=== PATIENT | female | born 1970 | race Caucasian/White ===

== ENCOUNTER 2017-01-19 12:41 | Observation (INO) | payer OTHER ==
[2017-01-19] VITALS (11 sets, daily range): BP systolic 106–167; BP diastolic 65–96; PULSE 77–112; RESP 18–20; TEMP 98.4–98.8; O2SAT 95–100
[~2017-01-19] VITALS: Ht 175.3 cm; Wt 97.0 kg
[~2017-01-19 12:41] MED LIST: HYDR-3580; Z.0.NO CURRENT MEDS
--- NOTE | 2017-01-19 12:51 | PD ---
Physical Exam Time Seen by Provider: 12:46 Narrative 46yo F c/o L sided chest pain and SOB x3 days. CP worse with exertion. Report heart palpitation dn hx of tachycardia throughout life. Patient seen in triage. VS reviewed. Awaiting bed placement. Data Data Last Documented VS Vital Signs Date Time Temp Pulse Resp B/P Pulse Ox O2 Delivery O2 Flow Rate FiO2 01/19/17 12:43 98.6 112 20 167/96 100 Room Air MDM Supervised Visit with ZACHARY: Arleen Gerard January 19, 2017 12:51
--- NOTE | 2017-01-19 13:12 | PD ---
HPI Chief Complaint: Chest Pain Time Seen by Provider: 13:11 Travel History International Travel<30 days: No Contact w/Intl Traveler<30days: No Traveled to known affect area: No History of Present Illness HPI 46-year-old female presents to the emergency department for evaluation of midsternal chest pain that radiates up to her neck with exertion for the past 2 days. 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 She states that she has intermittent issues with tachycardia. Approximately 21 years ago, she was on atenolol for tachycardia, but has not been on it since. The patient states that she sees Dr. Parker, medical i d sales, intermittently. She states that she called him today and was aware that she was coming to the emergency department. The patient denies any headache. No hemoptysis. She states that when she has the chest pain with exertion, she will become short of breath. Patient denies any recent stress test or cardiac catheterization. She states she is not on any medications currently. She is allergic to aspirin. The patient denies any abdominal pain. No nausea, vomiting, diarrhea. Patient does report traveled to [place], [place] by car approximately one month ago. She denies any new leg edema. She denies any history of DVT/PE. Patient denies reporting history of hysterectomy. 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) Endocrine: No Gastrointestinal Disorders: Yes (RECENT MRA PELVIS/ABD AT [facility] THIS WK.) Genitourinary: No Immune Disorder: No Musculoskeletal: No Neurologic: No Psychiatric: No Reproductive: Yes Respiratory: No ?: Not : 2 Para: 2 Miscarriage: 0 : 0 Tubal Ligation: Yes Past Surgical History Appendectomy: Yes Hysterectomy: Yes Social History Alcohol Use: Yes (WINE/ OCCASIONAL LAST USED 2MONTHS) Tobacco Use: No Substance Use: No Allergies-Medications (Allergen,Severity, Reaction): Coded Allergies: Aspirin (Verified Allergy, Severe, hives, 01/19/17) Gentamicin (Verified Allergy, Severe, Hives, 01/19/17) Keflex (Verified Allergy, Severe, hives, 01/19/17) Latex (Verified Allergy, Severe, bronchospasm, 01/19/17) Penicillin (Verified Allergy, Severe, 01/19/17) Sulfa (Verified Allergy, Severe, hives, 01/19/17) Vancomycin (Verified Allergy, Severe, hives, 01/19/17) Reported Meds & Prescriptions Reported Meds & Active Scripts Active Lortab 7.5/325 Tab (Hydrocodone-Acetaminophen) 7.5 Mg/325 Mg Tab 1 Tab .XX Q6- 8HPRN 14 Days Reported No Current Meds (Miscellaneous Medication) Misc Review of Systems Except as stated in HPI: all other systems reviewed are Neg Physical Exam Narrative GENERAL: Well-nourished, well-developed female patient, afebrile. SKIN: Focused skin assessment warm/dry. HEAD: Normocephalic. Atraumatic. EYES: No scleral icterus. No injection or drainage. NECK: Supple, trachea midline. No JVD or lymphadenopathy. CARDIOVASCULAR: Regular rhythm without murmurs, gallops, or rubs. Bilateral radial and pedal pulses are 2+. Patient is slightly tachycardic with heart rate 107. RESPIRATORY: Breath sounds equal bilaterally. No accessory muscle use. Lungs sounds are clear to auscultation. GASTROINTESTINAL: Abdomen soft, non-tender, nondistended. MUSCULOSKELETAL: No cyanosis, or edema. Bilateral upper and lower extremity strength 5/5. All extremities are neurovascularly intact. BACK: Nontender without obvious deformity. No CVA tenderness. Data Data Last Documented VS Vital Signs Date Time Temp Pulse Resp B/P Pulse Ox O2 Delivery O2 Flow Rate FiO2 01/19/17 13:51 92 18 142/82 Room Air 01/19/17 13:15 98 01/19/17 12:43 98.6 Orders Electrocardiogram (01/19/17 12:49) Complete Blood Count With Diff (01/19/17 12:49) Basic Metabolic Panel (Bmp) (01/19/17 12:49) Ckmb (Isoenzyme) Profile (01/19/17 12:49) Troponin I (01/19/17 12:49) Chest, Single Ap (01/19/17 12:49) Iv Access Insert/Monitor (01/19/17 12:49) Ecg Monitoring (01/19/17 12:49) Oxygen Administration (01/19/17 12:49) Oximetry (01/19/17 12:49) Magnesium (Mg) (01/19/17 13:09) D-Dimer (01/19/17 13:09) Act Partial Throm Time (Ptt) (01/19/17 13:09) Prothrombin Time / Inr (Pt) (01/19/17 13:09) Echo 2d Comp With Doppler (01/19/17 ) Consult Cardiology (01/19/17 ) (Hub Use Only)Inp Phy Cons/Ref (01/19/17 ) Labs Laboratory Tests Test 01/19/17 13:25 White Blood Count 9.4 TH/MM3 Red Blood Count 4.92 MIL/MM3 Hemoglobin 14.1 GM/DL Hematocrit 42.0 % Mean Corpuscular Volume 85.4 FL Mean Corpuscular Hemoglobin 28.6 PG Mean Corpuscular Hemoglobin 33.5 % Concent Red Cell Distribution Width 12.8 % Platelet Count 380 TH/MM3 Mean Platelet Volume 8.9 FL Neutrophils (%) (Auto) 53.1 % Lymphocytes (%) (Auto) 36.8 % Monocytes (%) (Auto) 8.1 % Eosinophils (%) (Auto) 1.2 % Basophils (%) (Auto) 0.8 % Neutrophils # (Auto) 5.0 TH/MM3 Lymphocytes # (Auto) 3.5 TH/MM3 Monocytes # (Auto) 0.8 TH/MM3 Eosinophils # (Auto) 0.1 TH/MM3 Basophils # (Auto) 0.1 TH/MM3 CBC Comment DIFF FINAL Differential Comment Prothrombin Time 10.3 SEC Prothromb Time International 0.9 RATIO Ratio Activated Partial 28.4 SEC Thromboplast Time D-Dimer Quantitative (PE/DVT) 0.21 MG/L FEU Sodium Level 139 MEQ/L Potassium Level 3.6 MEQ/L Chloride Level 107 MEQ/L Carbon Dioxide Level 22.4 MEQ/L Anion Gap 10 MEQ/L Blood Urea Nitrogen 11 MG/DL Creatinine 0.78 MG/DL Estimat Glomerular Filtration 79 ML/MIN Rate Random Glucose 90 MG/DL Calcium Level 8.9 MG/DL Magnesium Level 2.3 MG/DL Total Creatine Kinase 48 U/L Troponin I LESS THAN 0.02 NG/ML MDM Medical Decision Making Medical Screen Exam Complete: Yes Emergency Medical Condition: Yes Medical Record Reviewed: Yes Interpretation(s) chest x-ray - CONCLUSION: No acute disease. Differential Diagnosis ACS versus chest wall pain versus PE versus anxiety versus unstable angina Narrative Course 46-year-old female presents to the emergency department for evaluation of midsternal chest pain that radiates to her neck that occurs with exertion for the past 2 days. Patient reports associated shortness of breath. EKG shows sinus tachycardia, heart rate 107 with left bundle branch block. CBC, BMP, CK, troponin, magnesium, PTT, PTT/INR, d-dimer, chest x-ray are ordered and pending. Patient is allergic to aspirin. CBC is unremarkable. BMP is unremarkable. CK is 48. Troponin is less than 0.02. Magnesium is 2.3. Coags are unremarkable. D-dimer is 0.21. Chest x- ray shows no acute disease. Dr. Parker, patient's medical i d sales, called and requested stat echo. This order is placed. He states he will see patient shortly. Dr. Salazar accepted admission. Diagnosis Primary Impression: Chest pain Qualified Code: R07.9 - Chest pain, unspecified type Additional Impression: Left bundle branch block Admitting Information Admitting Physician Requests: Ruth Olivo January 19, 2017 13:12
--- NOTE | 2017-01-19 13:33 | RADRPT ---
EXAM DATE/TIME: 01/19/2017 13:07 [facility] COMPARISON: No previous studies available for comparison. INDICATIONS : Chest pain. MEDICAL HISTORY : None. SURGICAL HISTORY : None. ENCOUNTER: Initial ACUITY: 3 days PAIN SCORE: 2/10 LOCATION: Bilateral chest FINDINGS: A single view of the chest demonstrates the lungs to be symmetrically aerated without evidence of mas s, infiltrate or effusion. The cardiomediastinal contours are unremarkable. Osseous structures are intact. CONCLUSION: No acute disease. Celio Cervantes MD FACR on January 19, 2017 at 13:30 Board Certified Radiologist. This report was verified electronically.
[2017-01-19 13:47] LABS: BASOPHIL # 0.1 TH/MM3 (0-0.2); BASOPHIL % 0.8 % (0.0-2.0); EOSINOPHIL # 0.1 TH/MM3 (0-0.4); EOSINOPHIL % 1.2 % (0.0-4.0); HEMO FLAGS DIFF FINAL; LYMPH % 36.8 % (9.0-44.0); LYMPHOCYTE # 3.5 TH/MM3 (1.0-4.8); MEAN CELL VOLUME 85.4 FL (80.0-100.0); MEAN CORPUSCULAR HEMOGLOBIN 28.6 PG (27.0-34.0); MEAN CORPUSCULAR HGB CONC 33.5 % (32.0-36.0); MONO % 8.1 % (0.0-8.0); NEUT % 53.1 % (16.0-70.0); PLATELET COUNT 380 TH/MM3 (150-450); RED BLOOD COUNT 4.92 MIL/MM3 (4.00-5.30); RED CELL DISTRIBUTION WIDTH 12.8 % (11.6-17.2); WHITE BLOOD COUNT 9.4 TH/MM3 (4.0-11.0)
[2017-01-19 14:04] LABS: APTT (PATIENT) 28.4 SEC (24.3-30.1); INTERNATIONAL NORMALIZED RATIO 0.9 RATIO; PROTHROMBIN TIME - PATIENT 10.3 SEC (9.8-11.6)
[2017-01-19 14:05] LABS: ANION GAP 10 MEQ/L (5-15); BICARBONATE 22.4 MEQ/L (21.0-32.0); BLOOD UREA NITROGEN 11 MG/DL (7-18); CHLORIDE 107 MEQ/L (98-107); GLOMERULAR FILTRATION RATE 79 ML/MIN (>89); POTASSIUM 3.6 MEQ/L (3.5-5.1); SODIUM (NA) 139 MEQ/L (136-145)
[2017-01-19 14:10] LABS: CREATINE KINASE 48 U/L (26-192)
--- NOTE | 2017-01-19 14:27 | PD ---
Data Data Last Documented VS Vital Signs Date Time Temp Pulse Resp B/P Pulse Ox O2 Delivery O2 Flow Rate FiO2 01/19/17 13:51 92 18 142/82 Room Air 01/19/17 13:15 98 01/19/17 12:43 98.6 Orders Electrocardiogram (01/19/17 12:49) Complete Blood Count With Diff (01/19/17 12:49) Basic Metabolic Panel (Bmp) (01/19/17 12:49) Ckmb (Isoenzyme) Profile (01/19/17 12:49) Troponin I (01/19/17 12:49) Chest, Single Ap (01/19/17 12:49) Iv Access Insert/Monitor (01/19/17 12:49) Ecg Monitoring (01/19/17 12:49) Oxygen Administration (01/19/17 12:49) Oximetry (01/19/17 12:49) Magnesium (Mg) (01/19/17 13:09) D-Dimer (01/19/17 13:09) Act Partial Throm Time (Ptt) (01/19/17 13:09) Prothrombin Time / Inr (Pt) (01/19/17 13:09) Echo 2d Comp With Doppler (01/19/17 ) Consult Cardiology (01/19/17 ) (Hub Use Only)Inp Phy Cons/Ref (01/19/17 ) Admit Order (Ed Use Only) (01/19/17 16:26) Labs Laboratory Tests Test 01/19/17 13:25 White Blood Count 9.4 TH/MM3 Red Blood Count 4.92 MIL/MM3 Hemoglobin 14.1 GM/DL Hematocrit 42.0 % Mean Corpuscular Volume 85.4 FL Mean Corpuscular Hemoglobin 28.6 PG Mean Corpuscular Hemoglobin 33.5 % Concent Red Cell Distribution Width 12.8 % Platelet Count 380 TH/MM3 Mean Platelet Volume 8.9 FL Neutrophils (%) (Auto) 53.1 % Lymphocytes (%) (Auto) 36.8 % Monocytes (%) (Auto) 8.1 % Eosinophils (%) (Auto) 1.2 % Basophils (%) (Auto) 0.8 % Neutrophils # (Auto) 5.0 TH/MM3 Lymphocytes # (Auto) 3.5 TH/MM3 Monocytes # (Auto) 0.8 TH/MM3 Eosinophils # (Auto) 0.1 TH/MM3 Basophils # (Auto) 0.1 TH/MM3 CBC Comment DIFF FINAL Differential Comment Prothrombin Time 10.3 SEC Prothromb Time International 0.9 RATIO Ratio Activated Partial 28.4 SEC Thromboplast Time D-Dimer Quantitative (PE/DVT) 0.21 MG/L FEU Sodium Level 139 MEQ/L Potassium Level 3.6 MEQ/L Chloride Level 107 MEQ/L Carbon Dioxide Level 22.4 MEQ/L Anion Gap 10 MEQ/L Blood Urea Nitrogen 11 MG/DL Creatinine 0.78 MG/DL Estimat Glomerular Filtration 79 ML/MIN Rate Random Glucose 90 MG/DL Calcium Level 8.9 MG/DL Magnesium Level 2.3 MG/DL Total Creatine Kinase 48 U/L Troponin I LESS THAN 0.02 NG/ML MDM Supervised Visit with ZACHARY: Yes Narrative Course I, Dr. Hernandez, have reviewed the advance practice practitioner's documentation and am in agreement, met with the patient face to face, made the diagnosis, and the medical decision making was done by me. *My assessment and Findings: Patient seen and examined by me in addition to Ruth Box. Patient has descriptions of fairly classic ACS symptoms but is currently asymptomatic. She does have a left bundle branch block and a previous EKG was from 2005 tracing is not available direct report from cardiology says was normal sinus rhythm. Presumably this could be a new bundle branch block but given that she is asymptomatic currently there is no indication to STEMI alert her. We'll monitor closely for symptoms. Have been discussing very closely with Dr. Parker who will be happy to consult and recommends admission to the hospital. After troponin returns negative Dr. Parker has arrived to examine the patient and plan is for cardiac catheterization in the morning. Patient remained asyptomatic on the emergency department. Diagnosis Primary Impression: Left bundle branch block Additional Impression: Chest pain Qualified Code: R07.9 - Chest pain, unspecified type Admitting Information Admitting Physician Requests: Admit Condition: Stable Rocky Hernandez MD January 19, 2017 14:27
--- NOTE | 2017-01-19 14:50 | EC ---
Study Study Date:01/19/2017 STUDY CONCLUSIONS SUMMARY - Left ventricle: The cavity size was normal. Wall thickness was normal. Systolic function was normal. The estimated ejection fraction was in the range of 55% to 60%. Wall motion was normal; there were no regional wall motion abnormalities. - Aortic valve: Valve area: 2.35cm^2 (Vmax). If LV function is below 40, please consider prescribing an ACEI or ARB or document rationale for non-use. PROCEDURE DATA STUDY STATUS: Elective. Procedure: Transthoracic echocardiography. Image quality was poor. Scanning was performed from the parasternal, apical, and subcostal acoustic windows. Study completion: The patient tolerated the procedure well. Transthoracic echocardiography. M-mode, complete 2D, complete spectral Doppler, and color Doppler. Height: Height: 69in. Weight: Weight: 215.6lb. Body mass index: BMI: 31.9kg/m^2. Body surface area: BSA: 2.13m^2. Patient status: Inpatient. CARDIAC ANATOMY LEFT VENTRICLE: The cavity size was normal. Wall thickness was normal. Systolic function was normal. The estimated ejection fraction was in the range of 55% to 60%. Wall motion was normal; there were no regional wall motion abnormalities. AORTIC VALVE: Trileaflet; normal thickness leaflets. Doppler: Transvalvular velocity was within the normal range. There was no stenosis. No regurgitation. Valve area: 2.35cm^2 (Vmax). Indexed valve area: 1.1cm^2/m^2 (Vmax). AORTA: Aortic root: The aortic root was normal in size. MITRAL VALVE: Structurally normal valve. Doppler: Transvalvular velocity was within the normal range. There was no evidence for stenosis. Trace to mild regurgitation. LEFT ATRIUM: The atrium was normal in size. RIGHT VENTRICLE: The cavity size was normal. Wall thickness was normal. PULMONIC VALVE: Doppler: Transvalvular velocity was within the normal range. There was no evidence for stenosis. No regurgitation. TRICUSPID VALVE: Structurally normal valve. Doppler: Transvalvular velocity was within the normal range. No regurgitation. PULMONARY ARTERY: The main pulmonary artery was normal-sized. Systolic pressure was within the normal range. RIGHT ATRIUM: The atrium was normal in size. PERICARDIUM: There was no pericardial effusion. SYSTEMIC VEINS: Inferior vena cava: The vessel was normal in size. Patient weight: 215.6lb _Ejection fraction:_ 65-75% _Fractional shortening:_ 32% up to 5Kg 5-11.5Kg 11.6-22.9Kg 23-45Kg 45-57Kg Aortic Root 7-13 <17 13-22 17-27 17-27 LA diam 6-13 <23 24-38 33-47 37-40 RVID 10-17 7-15 7-15 7-18 8-17 LVIDd 12-22 <32 24-38 33-47 37-40 LVPW 2-4 3-6 5-7 6-8 7-8 IVS 2-4 3-6 5-7 6-8 7-8 BASIC MEASUREMENTS ADULT NORMAL Left ventricle LV internal dimension, ED, chordal 46.6 mm 43-52 level, PLAX LV internal dimension, ES, chordal 34.7 mm 23-38 level, PLAX Fractional shortening, chordal level, *26 % >29 PLAX LV posterior wall thickness, ED 9.66 mm IVS/LVPW ratio, ED 1.07 <1.3 Ventricular septum Septal thickness, ED 10.3 mm Aortic valve Leaflet separation 19 mm 15-26 BASIC MEASUREMENTS ADULT NORMAL Aortic valve Leaflet separation 19 mm 15-26 Aorta Root diameter, ED 30 mm 20-37 Left atrium Anterior-posterior dimension, ES 25 mm 19-40 Anterior-posterior dimension index, ES 1.17 cm/m^2 <2.2 LA/aortic root ratio 0.83 DOPPLER MEASUREMENTS ADULT NORMAL Aortic valve Peak velocity, S 134 cm/s Valve area, Vmax 2.35 cm^2 Valve area index, Vmax 1.1 cm^2/m^2 Mitral valve Maximal regurgitant velocity 418 cm/s Pulmonic valve Peak velocity, S 113 cm/s LEGEND: Mean values are shown as u=mean value. Asterisk (*) boyer values outside specified normal range. Prepared and signed by Oscar Javier [id number]
[2017-01-19] MEDS ORDERED: SODIUM CHLORIDE 0.9% FLUSH 10 ML FLUSH IV FLUSH PRN (17:30)
[2017-01-19] MEDS ORDERED: ASPIRIN 81 MG CHEW TAB CHEW SCH (17:30)
[2017-01-19] MEDS ORDERED: ACETAMINOPHEN 325 MG TAB PO PRN (17:30)
[2017-01-19] MEDS ORDERED: NALOXONE HCL 0.4 MG/ML AMP IV PRN (17:30)
[2017-01-19] MEDS ORDERED: PANTOPRAZOLE SOD 40 MG DELAYED RELEASE TAB PO ONE (17:30)
[2017-01-19] MEDS ORDERED: HEPARIN SODIUM - SQ 10,000 UNITS/ML VIAL SQ SCH (17:30)
[2017-01-19] MEDS ORDERED: LACTULOSE SYRUP 20 GM/30 ML CUP PO PRN (17:30)
[2017-01-19] MEDS ORDERED: SENNOSIDES 8.6 MG TAB PO PRN (17:30)
[2017-01-19] MEDS ORDERED: ONDANSETRON HCL 4 MG/2 ML VIAL IVP PRN (17:30)
[2017-01-19] MEDS ORDERED: MAGNESIUM HYDROXIDE SUSP 30 ML CUP PO PRN (17:30)
[2017-01-19] MEDS ORDERED: TICAGRELOR 90 MG TAB PO ONE (18:00)
[2017-01-19] MEDS ORDERED: diphenhydrAMINE HCL 50 MG CAP PO ONE (18:00)
[2017-01-19] MEDS ORDERED: HEPARIN SODIUM - IV 10,000 UNITS/10 ML VIAL IV ONE (18:00)
[2017-01-19] MEDS ORDERED: HEPARIN-D5W INJ 250 ML IV SCH (18:00)
--- NOTE | 2017-01-19 18:18 | MH ---
cc: RICARDA AMARO MD DATE OF ADMISSION: 01/19/2017 DATE OF : 1970 CHIEF COMPLAINT Chest pain. HISTORY OF PRESENT ILLNESS This is a pleasant 46-year-old white female who has been in her usual state of health up until the past few weeks. She does note a tired sensation which seems to be worsening with activity. 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 The patient states that for the past couple of days that she has had a pressure sensation in her midsternal chest. She states that it has a full sensation and seems to radiate now up into the neck and the left shoulder. She does have some shortness of breath associated with the pain and states that it waxes and wanes depending on activity. The patient states that she is now over the past 48 hours walking short distances and becomes short of breath and lightheaded to the point that she feels like she needs to lay down. After resting, the patient states that the pain will be easy but the symptoms return with any type of exertion. The patient noted that she has had WPW or some type of tachycardia as a young child [id number] years old. She also experienced tachycardia and problems with her pregnancies. The patient denies any headaches, no current shortness of breath at rest. She denies any extremity edema, no cough, no recent fever, no recent sickness or antibiotics. PAST MEDICAL HISTORY 1. Tachycardia or WPW when she was a younger. 2. Hyperlipidemia. 3. Mild anxiety. 4. Mild obesity. 5. Occasional increased stressors. PAST SURGICAL HISTORY 1. Appendectomy. 2. Hysterectomy. 3. Recent MRA of the pelvis and abdomen. ALLERGIES ASPIRIN, GENTAMICIN, KEFLEX, LATEX, PENICILLIN, SULFA, AND VANCOMYCIN. REPORTED MEDICATIONS No routine usual medications. SOCIAL HISTORY The patient is , currently lives with her . 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 Denies any alcohol or illicit drug use. A very rare social drink of wine on special occasions. FAMILY HISTORY Positive for atrial fibrillation, cardiovascular disease and leukemia. REVIEW OF SYSTEMS A 12-point review was done and positives noted in the HPI include her chest pain, pressure sensation in the chest with fullness associated with shortness of breath, radiating into the left shoulder and left neck. Lightheadedness with palpitations with some mild palpitations but not a consistent symptom. Increased stressors. Other systems negative or unremarkable. PHYSICAL EXAMINATION VITAL SIGNS: Temperature is 98.6, pulse labile between 92-112, respiratory rate 18, blood pressure 142/82, initially was 167/96 on admission, O2 saturation 98 on room air. GENERAL: Mildly obese white female, looks to be her stated age, well-nourished, well-developed. She is alert, oriented, cooperative and a good historian. HEAD, EYES, EARS, NOSE AND THROAT/NECK: Atraumatic, normocephalic. PERRLA at 2. Mucous membranes are pink and moist. Neck is supple. She has no scleral icterus. SKIN: Her skin is pink, warm and dry. CARDIOVASCULAR: S1, S2. Regular, rate and rhythm. Heart sounds are distant but no murmurs, rubs or gallops audible. She has no lower extremity edema and her pulses are 2+/4+ and intact. PULMONARY: Essentially clear anteriorly and posteriorly with no wheezes, rales or rhonchi. ABDOMEN: Abdomen is round, soft, nontender, nondistended. Active bowel sounds in all quadrants. MUSCULOSKELETAL: She moves all extremities with purpose. She has equal hand computerized table cutter. NEUROLOGIC: Her tongue is midline. Her speech is clear. PSYCHOLOGICAL: Appropriate mood and affect. Insight and judgment is normal. DIAGNOSTIC DATA Sodium 139, potassium 3.6, chloride 107, carbon dioxide 22.4, anion gap 10, BUN 11, creatinine 0.78, GFR 79, random glucose 90, calcium 8.9, magnesium 2.3, creatine kinase 48, troponin less than 0.02. PT/INR is 0.9. D-dimer is 0.21. WBC count 9.4, RBC 4.92, hemoglobin 14.1, hematocrit 42, platelet count 380. The only abnormal in her disks is her monocyte percentage which is 8.1. Imaging studies show her chest x-ray to be a normal exam, no acute disease. ASSESSMENT AND PLAN 1. Chest pain. Rule out ME. Rule out cardiovascular disease. 2. Tachycardia with EKG showing left bundle branch block. 3. Exertional dyspnea related to #1. 4. History of tachycardia as a child. 5. Hyperlipidemia. PLAN 1. Admit for observation. 2. We will monitor her vital signs as well as her labs, ECG monitoring and IV access. 3. O2 administration. The patient has been instructed to wear oxygen if her pain continues. 4. We will consult Cardiology for their expert opinion. 5. DVT prophylaxis with heparin subcu. 6. PUD prophylaxis with Protonix. 7. The patient has no TSH on her labs. We will monitor a TSH level for a baseline and rule out any type of thyroid disease. The patient is FULL CODE/FULL AGGRESSIVE CARE and we will follow. Dictated by: Ele Miranda NP MD RAFAEL Monsalve/FRANCISCO /5:12 PM /5:39 PM
[2017-01-19] MEDS ORDERED: ALPRAZolam 0.25 MG TAB PO PRN (20:00)
[2017-01-19] MEDS: NITROGLYCERIN 2% OINT 1 GM PACKET TOPICAL SCH (20:43)
[2017-01-19] MEDS: TICAGRELOR 90 MG TAB PO SCH ×2 (21:00→21:10)
[2017-01-19] MEDS: SODIUM CHLORIDE 0.9% FLUSH 10 ML FLUSH IV FLUSH SCH (21:11)
[2017-01-19] MEDS: METOPROLOL TARTRATE 25 MG TAB PO SCH (21:11)
[2017-01-19] MEDS: SODIUM CHLOR 0.9% 1000 ML INJ 1,000 ML IV SCH (21:12)
[2017-01-19 22:03] LABS: ALT (GPT) 21 U/L (10-53); ANION GAP 8 MEQ/L (5-15); AST (GOT) 14 U/L (15-37); BICARBONATE 24.4 MEQ/L (21.0-32.0); BLOOD UREA NITROGEN 9 MG/DL (7-18); CHLORIDE 108 MEQ/L (98-107); GLOMERULAR FILTRATION RATE 79 ML/MIN (>89); POTASSIUM 3.7 MEQ/L (3.5-5.1); SODIUM (NA) 140 MEQ/L (136-145)
--- NOTE | 2017-01-19 22:29 | MB ---
cc: ANTHONY LANDON M.D. DATE OF CONSULTATION 01/19/2017 REASON FOR CONSULTATION Evaluation of chest pain. 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 She has no prior cardiac history. She does have a significant family history insofar as her father had a heart attack at age 80. She had a grandfather who of [place]. She has other relatives that have atrial fibrillation. At one time she was told she had an extremely high cholesterol but this was while she was on hormone replacement therapy. Her numbers improved after she went off hormone replacement so she has never been treated with a statin before. Last year she was diagnosed with an acute cytomegalic virus infection. She started feeling different about two weeks ago. 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 She has been unusually exhausted, having a little more palpitations than normal, but then started getting chest pain. The first episode of chest pain was Tuesday night when [place] the [place]. It was pain in the middle of her chest like a crushing, tightness, fullness with radiation into the throat with shortness of breath. It was relieved by resting and now if she does any activity, just minimal activity such as walking a very short distance she will get a crushing substernal chest pain with fullness in her throat, some dizziness and shortness of breath. Just getting dressed this morning brought on these type of symptoms. She was at work and had symptoms like this and requested an EKG. Subsequently was taken to the ER and is now being admitted. She has not had any prolonged discomfort, all of her discomfort has resolved. She does not have orthopnea, PND or edema. She is unable to take aspirin because aspirin gives her hives and bronchospasms so she is not on any antiplatelet therapy. She has had no recent lipid values. I did speak with her primary care physician Dr. Borja and in her electronic medical record he could not find lipid values that had been done. She has a left bundle-branch block on her EKG. She has not been known to previously have this. As a child she was thought to have potentially WPW but that was never confirmed. She used to have rapid palpitations and tachycardia but this was more than 20 years ago. MEDICATIONS She has no current medications. ALLERGIES HER ALLERGIES INCLUDE ASPIRIN, GENTAMICIN, KEFLEX, LATEX, PENICILLIN, SULFA, VANCOMYCIN. PAST MEDICAL HISTORY 1. Cytomegalovirus. 2. Previous left knee arthroscopy for torn meniscus. 3. Ruptured appendix at age 25, that was when she was tried on all of the above antibiotics and had reactions to them. PAST SURGICAL HISTORY Includes a complete hysterectomy. SOCIAL HISTORY She is . She has two children and one stepchild. She works at [employer]. PHYSICAL EXAMINATION GENERAL: Physical exam shows a mildly anxious, well-developed, well-nourished, white female in no acute distress. VITAL SIGNS: Her vital signs are charted. HEENT: Exam is unremarkable. NECK: Notable for the absence of JVD or bruits. CHEST: Her chest is clear to auscultation. CARDIOVASCULAR: Exam shows a normal first and second heart sound, regular rate and rhythm. There are no murmurs or gallops. ABDOMEN: Soft, nontender. No masses, organomegaly. EXTREMITIES: Show no clubbing, cyanosis or edema. Pulses are intact. EKG shows sinus rhythm with a left bundle-branch block and no acute changes on top of the left bundle to suggest ischemia. Initial troponin is normal. Creatinine is 0.78. Hematocrit is 42.0. PT/PTT are normal. Lipid values been ordered and are pending. TSH level was ordered and pending. IMPRESSION This is a 46-year-old female with a family history of coronary artery disease and history of hyperlipidemia who has not been feeling well for the past two weeks and for the last several days was having symptoms that are fairly classic for unstable angina. Other than unstable angina I cannot think of any other diagnosis that would adequately explain her current symptomatology. She has a left bundle-branch block on her EKG which is of unknown duration. PLAN Lipid values are being measured. Her thyroid being checked. I think this is true unstable angina. Therefore I think we should proceed directly to cardiac catheterization. I am going to initiate heparin and Brilinta this evening. We will go ahead and initiate antianginal therapy with beta amanda and nitroglycerin. She cannot be treated with aspirin due to an aspirin allergy. PLAN Is to perform a diagnostic cardiac catheterization first thing tomorrow morning. We will then determine what type of revascularization she might need. She understands there is a significant chance she may end up needing a stent tomorrow. Informed consent has been obtained. I have spoken with her . Further therapy be determined. MD LORA Yoder/SCOTT /6:10 PM /10:00 PM
[2017-01-19 22:38] LABS: ALKALINE PHOSPHATASE 64 U/L (45-117); HDL CHOLESTEROL 48.7 MG/DL (40.0-60.0); LDL CHOLESTEROL 133 MG/DL (0-99); TOTAL BILIRUBIN ADULT 0.5 MG/DL (0.2-1.0)
[2017-01-20] VITALS (14 sets, daily range): BP systolic 113–137; BP diastolic 66–83; PULSE 70–132; RESP 16–18; TEMP 98.8–98.9; O2SAT 95–99
[2017-01-20] MEDS ORDERED: HEPARIN SODIUM - IV 10,000 UNITS/10 ML VIAL IV PRN ×2
[2017-01-20] MEDS: NITROGLYCERIN 2% OINT 1 GM PACKET TOPICAL SCH ×2 (00:39→06:04)
[2017-01-20] MEDS: SODIUM CHLOR 0.9% 1000 ML INJ 1,000 ML IV SCH (04:00)
[2017-01-20 04:03] LABS: APTT (PATIENT) 41.4 SEC (24.3-30.1)
[2017-01-20] MEDS: METOPROLOL TARTRATE 25 MG TAB PO SCH (06:04)
[2017-01-20] MEDS ORDERED: DIAZEPAM 5 MG TAB PO ONE (06:30)
[2017-01-20] MEDS ORDERED: HEPARIN-NS/PF INJ 500 ML ONE (07:27)
[2017-01-20] MEDS ORDERED: VERAPAMIL HCL 5 MG/2 ML VIAL ONE ×2 (07:28→08:17)
[2017-01-20] MEDS ORDERED: MIDAZOLAM HCL 2 MG/2 ML VIAL ONE ×2 (07:28→07:53)
[2017-01-20] MEDS ORDERED: HEPARIN SODIUM - IV 10,000 UNITS/10 ML VIAL ONE (07:28)
[2017-01-20] MEDS ORDERED: NITROGLYCERIN INJ 5 ML ONE (07:30)
[2017-01-20] MEDS ORDERED: SODIUM CHLOR 0.9% 1000 ML INJ 1,000 ML IV SCH (08:51)
[2017-01-20] MEDS: SODIUM CHLORIDE 0.9% FLUSH 10 ML FLUSH IV FLUSH SCH (09:00)
[2017-01-20] MEDS ORDERED: ONDANSETRON HCL 4 MG/2 ML VIAL IVP PRN (09:00)
[2017-01-20] MEDS ORDERED: oxyCODONE/ACETAMINOPHEN 5 MG/325 MG TAB PO PRN (09:00)
[2017-01-20] MEDS ORDERED: BACITRACIN OINT 0.9 GM PKT TOP ONE (09:00)
[2017-01-20] MEDS ORDERED: MISC INFORMATION XX ONE (09:00)
--- NOTE | 2017-01-20 09:04 | CATHPROC ---
[employer] HIS Report Study Information Study Number Scheduled Start Study Start [id number] 01/20/2017 Jan 20 2017 7:14AM Referring Institution Admit Source Facility Department 1 Emergency department [facility] - Handbag Operator Physician and Clinical Staff Initial Jeffrey Rios Accreditation Manager Kavya Fuentes,RN Recorder Tripp Bellamy,MIGUELITO(BS) Recorder Aleena Martinez,WELDING PRODUCTION SUPERVISOR TECH2 Scrub Lian Garcia,RT(R) Procedures Performed Procedure Location (Site) Vessel Name Angiogram LV LV Ventricle Coronary Angiograms LCA Left Coronary Coronary Angiograms RCA Right Coronary L Heart Cath Equipment Time Pigment Pusher Description Size Mfg Part Number Used/Scraped TRANSDUCER, TRUWAVE [id number] 07:20 GARCIA FUENTES * Used W/STOCKCOCK *[id number] 534-576T *[id number] 534-545T *[id number] 534-548T *[id number] 534-518T *[id number] 534-521T *[id number] 534-523T *[id number] 538-453S *[id number] 07:20 MALLINCKRODT SYRINGE, ANGIOMAT 150ML 150ML *[id number] Used 2SUB [id number] 07:20 Converged Access PACK, CCL CUSTOM * Used *[id number] 07:20 Converged Access SUPPORT, ARTERIAL ADULT 35069 Used [id number] 07:20 TherapeuticsMD PACER PEN, SKIN DUAL W/ RULER * Used *[id number] BAND, RADIAL COMPRESSION TR [id number] 08:47 Bottle MEDICAL 24CM Used SHORT 24 *[id number] 07:20 [employer] WIRE, EXCHANGE 260CM 3MMJ 260CM Used *[id number] 07:20 NAMIC MANIFOLD, 4 PORT * Used *[id number] 07:20 NYCOMED OMNIPAQUE, 350 MG, 100ML 100ML [id number] Used 08:08 NYCOMED OMNIPAQUE, 350 MG, 150ML 150ML [id number] Used [id number] 07:20 marinanow BLANKET,WARM AIR CCL * Used *[id number] 07:20 marinanow JELCO NEEDLE 4056 Used SHEATH, FR6 TRANSRADIAL 07:20 [employer] FR 6 [id number] Used SLENDER 10CM History: Current Medications Medication Dosage/Unit Route Frequency Last Date/Time Taken Beta Fernando History: Allergies Allergy Reaction Aspirin hives Gentamicin Hives Keflex hives Latex bronchospasm Penicillin Sulfa hives Vancomycin hives History: Risk Factors Family History of Hypertension Dyslipidemia Previous HI Previous Heart Failure Premature CAD No Yes Yes No No Prior Valve Prior PCI Prior CABG Surgery No No No Cerebrovascular Peripheral Artery Chronic Lung On Dialysis Diabetes Disease Disease Disease No No No No No History: Symptoms/Diagnosis Selection Items Angina-unstable History: Stress Tests Stress or Imaging Studies Performed No History: Other Current Smoker No Labs Hgb (g/dl) Hct (%) WBC (l/cumm) Platelets (thousands) 12.00-18.00 37.00-55.00 4.80-10.80 140.00-450.00 14.1 42 9.4 380 Glucose (mg/dl) BUN (mg/dl) Creatinine (mg/dl) BUN:Creatinine (1:x) 60.00-110.00 8.00-20.00 0.10-9.00 10.00-20.00 88 9 0.7 12.9 Na (meq/l) K (meq/l) 138.00-146.00 3.80-5.10 140 3.7 INR (PTT:PT) 0.50-2.00 0.9 Troponin I (ng/ml) CPK-MB (ng/ML) 0.40-2.30 0.00-7.00 0.02 Not Drawn Medication Medication Total Dose (Bolus/Oral) Medication Total Dosage/Unit 1% XYLOCAINE 10 mL RADIAL COCKTAIL 10 mL (Bolus) VERSED 4 mg Medications (Bolus/Oral) Medication Time Given Dosage/Unit Administered By Reason VERSED 01/20/2017 7:37:12 AM 1 mg Alfredo, Kavya 1 mg VERSED given in lab by Kavya Fuentes RN in Left Forearm via Peripheral IV. Ordered by Jeffrey Daley. VERSED 01/20/2017 7:48:28 AM 1 mg Alfredo, Kavya 1 mg VERSED given in lab by Kavya Fuentes RN in Left Forearm via Peripheral IV. Ordered by Jeffrey Daley. VERSED 01/20/2017 7:54:34 AM 1 mg Alfredo, Kavya 1 mg VERSED given in lab by Kavya Fuentes RN in Left Forearm via Peripheral IV. Ordered by Jeffrey Daley. 1% XYLOCAINE 01/20/2017 7:57:19 AM 10 mL Jeffrey Parker 10 mL 1% XYLOCAINE given in lab by Jeffrey Parker in Right Radial via Subcutaneous. Ordered by Jeffrey Parker. Ntg 200mcg Verapamil 2.5mg Heparin RADIAL COCKTAIL 01/20/2017 8:06:59 AM 5 mL (Bolus) Jeffrey Parker 2500U 5 mL (Bolus) RADIAL COCKTAIL given in lab by Jeffrey Parker in Right Radial via Radial. Using [Solutio n Name]. Ordered by Jeffrey Parker. Reason: Ntg 200mcg Verapamil 2.5mg. Ntg 200mcg Verapamil 2.5mg Heparin RADIAL COCKTAIL 01/20/2017 8:22:29 AM 5 mL (Bolus) Jeffrey Parker 2500U 5 mL (Bolus) RADIAL COCKTAIL given in lab by Jeffrey Parker in Right Radial via Radial. Using [Solutio n Name]. Ordered by Jeffrey Parker. Reason: Ntg 200mcg Verapamil 2.5mg. VERSED 01/20/2017 8:30:11 AM 1 mg Kavya Fuentes 1 mg VERSED given in lab by Kavya Fuentes, RN in Left Forearm via Peripheral IV. Ordered by Jeffrey Daley. Medication (Drip) Medication Time Given Dosage/Unit Concentration/Unit Diluent (ml) Solution IV Solutions 01/20/2017 7:17:31 AM 0 mL (IV) 500 NaCl .9 Patient arrived on IV Solutions in Left Forearm via Peripheral IV. Pump/Drip Flow = 20 ml/hr using Na Cl .9. Ordered by Jeffrey Parker. Initial Case Assessment Cardiovascular HR Rhythm NIBP Chest Pain 79 SR 131/82 2 Edema Present Skin color Skin None Normal Warm Dry Circulatory - Right Pulses Dorsalis Pedis Femoral Radial 3 2 2 Scale (0,1,2,3,4,d) Circulatory - Left Pulses Dorsalis Pedis Femoral Radial 3 2 Scale (0,1,2,3,4,d) Circulatory - Lower Extremities Color Lower Right Color Lower Left Normal Normal Neurological State Oriented to time-place- Alert Moves all extremities person Respiration - General Respiration Rate SpO2 (%) (B/min) 10 97 Final Case Assessment Cardiovascular HR Rhythm NIBP Chest Pain 79 SR 131/82 2 Edema Present Skin color Skin None Normal Warm Dry Circulatory - Right Pulses Dorsalis Pedis Femoral Radial 3 2 2 Scale (0,1,2,3,4,d) Circulatory - Left Pulses Dorsalis Pedis Femoral Radial 3 2 Scale (0,1,2,3,4,d) Circulatory - Lower Extremities Color Lower Right Color Lower Left Normal Normal Neurological State Oriented to time-place- Alert Moves all extremities person Respiration - General Respiration Rate SpO2 (%) (B/min) 10 97 Chronological Log Time Study Chronological Log 7:14:39 Patient arrived via Bed. 7:14:40 Patient Name, D.O.B, / Armband Verified By R.N. 7:14:41 Consent signed by the physician and the patient and verified by the Handbag Operator staff. 7:14:42 Pre-op and post- op instructions given; patient acknowledges understanding of instructions. 7:17:15 Allens test performed on the right radial and ulnar artery. 7:17:17 Patient has been NPO for Less than 6Hrs. 7:17:18 Skin Breakdown- 7:17:19 Patient Warmer Placed on the Table. 7:17:29 A # 22 IV was noted in the Forearm (left). Grade = 0 Patient arrived on IV Solutions in Left Forearm via Peripheral IV. Pump/Drip Flow = 20 ml/hr us ing NaCl .9. Ordered by 7:17:31 Jeffrey Parker. 7:17:32 History and physical on the chart or being dictated. Assessment: Initial Case, HR=79 BPM, Rhythm=SR, UKDR=246/82 mmhg, Chest Pain=2, Edema=None, Keasbey r=Normal, Skin = Warm, Dry Right Pulses: Michael Ped=3, Femoral=2, Radial=2 Left Pulses: Michael Ped=3, Femoral=2 7:17:33 Lower Right Extremities: Color=Normal Lower Left Extremities: Color=Normal Neurological: State=Alert, Ox3, VICK Respiration: Resp=10 B/min, SpO2=97 % Vitals capture started with the following parameters, Patient=Adult, Interval=15 min, Initial Pr wnhoag=075 mmHg, 7:26:29 Deflation Rate=5 mmHg 7:27:02 HR=83 bpm, CVIG=730/82 mmhg, Resp=10 B/min, Pain=0, Rashaun=10, Ashby=2 7:32:01 HR=83 bpm, JKFV=618/88 mmhg, SpO2=97.0 %, Resp=11 B/min, Pain=0, Rashaun=10, Ashby=2 7:32:24 MD arrived. 7:33:24 Reference ECG taken 7:37:00 HR=79 bpm, OKCM=134/80 mmhg, SpO2=96.0 %, Resp=13 B/min, Pain=0, Rashaun=10, Ashby=2 7:37:12 1 mg VERSED given in lab by Kavya Fuentes, RN in Left Forearm via Peripheral IV. Ordered by Jeffrey Parker. 7:42:04 HR=98 bpm, PDJA=049/84 mmhg, SpO2=97.0 %, Resp=21 B/min, Pain=0, Rashaun=10, Ashby=2 7:45:25 12 LEAD EKG REQUESTED 7:47:05 HR=86 bpm, FTAU=959/80 mmhg, SpO2=97.0 %, Resp=14 B/min, Pain=0, Rashaun=10, Ashby=2 7:48:28 1 mg VERSED given in lab by Kavya Fuentes, JORDAN in Left Forearm via Peripheral IV. Ordered by Jeffrey Parker. 7:52:02 HR=97 bpm, EYTH=360/85 mmhg, SpO2=98.0 %, Resp=10 B/min, Pain=0, Rashaun=10, Ashby=2 Time Out. Correct patient, correct procedure,correct physician, ,power injector loaded with cont rast with surgical team 7:54:12 present. Time Out Concurred by , individual staff in procedure 7:54:17 Case Start 7:54:34 1 mg VERSED given in lab by Kavya Fuentes, JORDAN in Left Forearm via Peripheral IV. Ordered by Jeffrey Parker. 7:55:24 Pressure channel 1 zeroed. 7:57:03 HR=85 bpm, SSKY=627/80 mmhg, SpO2=96.0 %, Resp=16 B/min, Pain=0, Rashaun=10, Ashby=2 7:57:19 10 mL 1% XYLOCAINE given in lab by Jeffrey Parker in Right Radial via Subcutaneous. Ordered b Jeffrey Bailey. 8:02:02 HR=83 bpm, IEBD=906/81 mmhg, Resp=16 B/min, Pain=0, Rashaun=10, Ashby=2 8:05:35 Access site was Radial Artery. A SHEATH, FR6 TRANSRADIAL SLENDER 10CM FR 6 was advanced into the Radial (right) using the Skylar chua ::59 technique. 5 mL (Bolus) RADIAL COCKTAIL given in lab by Jeffrey Parker in Right Radial via Radial. Using [So lution Name]. 8::59 Ordered by Jeffrey Parker. Reason: Ntg 200mcg Verapamil 2.5mg. 8:07:07 HR=94 bpm, TBHJ=842/70 mmhg, SpO2=97.0 %, Resp=15 B/min, Pain=0, Rashaun=10, Ashby=2 A JL 3.5 INFINITI CATHETER FR 5 was advanced over a wire. OMNIPAQUE, 350 MG, 150ML 150ML was use d for 8:07:16 injections. Recorded Pressure: Ao, HR=86, Condition=Condition 1 8:07:27 (Aorta) Ao 106/73/87 8:08:13 The LCA was injected and visualized at various angles. OMNIPAQUE, 350 MG, 150ML 150ML used. After removing the current catheter a JR 5.0 INFINITI CATHETER FR 5 was advanced over a WIRE, EX CHANGE 260CM 8:10:19 3MMJ 260CM. 8:12:04 HR=88 bpm, FYVK=895/76 mmhg, SpO2=96.0 %, Resp=8 B/min, Pain=0, Rashaun=10, Ashby=2 After removing the current catheter a AR MOD INFINITI CATHETER FR 5 was advanced over a WIRE, EX CHANGE 260CM 8:16:13 3MMJ 260CM. 8:17:05 HR=85 bpm, MWDJ=887/78 mmhg, SpO2=96.0 %, Resp=10 B/min, Pain=0, Rashaun=10, Ashby=2 After removing the current catheter a 3DRC INFINITI CATHETER FR 5 was advanced over a WIRE, EXCH ABNER 260CM 8:21:13 3MMJ 260CM. 8:22:06 HR=80 bpm, DVAO=118/76 mmhg, SpO2=96.0 %, Resp=13 B/min, Pain=0, Rashaun=10, Ashby=2 5 mL (Bolus) RADIAL COCKTAIL given in lab by Jeffrey Parker in Right Radial via Radial. Using [S olution Name]. 8:22:29 Ordered by Jeffrey Parker. Reason: Ntg 200mcg Verapamil 2.5mg. After removing the current catheter a AL 1 INFINITI CATHETER FR 5 was advanced over a WIRE, EXC HANGE 260CM 8:25:56 3MMJ 260CM. 8:27:11 HR=83 bpm, CFAD=830/72 mmhg, SpO2=97.0 %, Resp=11 B/min, Pain=0, Rashaun=10, Ashby=2 After removing the current catheter a JR 4.0 INFINITI CATHETER FR 5 was advanced over a WIRE, E XCHANGE 260CM 8:29:03 3MMJ 260CM. 8:30:11 1 mg VERSED given in lab by Kavya Fuentes, RN in Left Forearm via Peripheral IV. Ordere d by Jeffrey Parker. Recorded Pressure: LV, HR=80, Condition=Condition 1 8:30:30 (Left Ventricle) LV 119/5/11 Recorded Pressure: LV, Ao, HR=80, Condition=Condition 1 8:30:36 (Left Ventricle) LV 117/5/10, (Aorta) Ao 122/76/97 8:31:42 The RCA was injected and visualized at various angles. OMNIPAQUE, 350 MG, 150ML 150ML used . 8:32:04 HR=89 bpm, SUFK=767/79 mmhg, SpO2=96.0 %, Resp=13 B/min, Pain=0, Rashaun=10, Ashby=2 After removing the current catheter a PIGTAIL ANG. INFINITI CATHETER FR 4 was advanced over a W FOREIGN, EXCHANGE 8:33:08 260CM 3MMJ 260CM. 8:33:50 The LV was injected at 10 cc/sec for a total of 40. OMNIPAQUE, 350 MG, 150ML 150ML used. 8:37:07 HR=90 bpm, WMBJ=178/78 mmhg, SpO2=98.0 %, Resp=8 B/min, Pain=0, Rashaun=10, Ashby=2 8:37:07 Catheter was removed 8:40:00 Case End 8:42:06 HR=83 bpm, CRUT=568/87 mmhg, Resp=7 B/min, Pain=0, Rashaun=10, Ashby=2 Assessment: Final Case, HR=79 BPM, Rhythm=SR, WJEE=294/82 mmhg, Chest Pain=2, Edema=None, Color =Normal, Skin = Warm, Dry Right Pulses: Michael Ped=3, Femoral=2, Radial=2 Left Pulses: Michael Ped=3, Femoral=2 8:43:03 Lower Right Extremities: Color=Normal Lower Left Extremities: Color=Normal Neurological: State=Alert, Ox3, VICK Respiration: Resp=10 B/min, SpO2=97 % 8:43:14 Sterile dressing applied to site 8:43:15 No case complications noted. 8:43:18 Cine recording checked. 8:43:29 Bedside Report will be given. 8:43:43 Contrast Scanned 8:43:50 A Left Heart Cath was performed. Radial Compression Device Used. 15 mLs of air placed in BAND, RADIAL COMPRESSION TR SHORT 24 24 CM. Affected 8:43:52 hand 98 % O2 saturation. 8:43:52 Patient moved to stretcher End Study - Contrast Media Used In Study Contrast Total Opened (mL) Total Used (mL) Total Wasted (mL) Omnipaque 150 150 0 End Study - Maximum Contrast Load Max Contrast Load (mL) 692.9 End Study - Radiation Exposure Fluoro Time (minutes) 15.1 End Study - Patient Disposition Complications Transferred To Telemetry Bed
--- NOTE | 2017-01-20 09:46 | EKG ---
Date Performed: 01/20/2017 Time Performed: 07:43:02 PTAGE: 46 years EKG: Sinus rhythm . Anteroseptal T wave changes may be due to myocardial ischemia Abnormal ECG PREVIOUS TRACING : 01/19/2017 12.55 Compared to the previous tracing, no longer a LBBB, but T w ave inversions are new anteriorly DOCTOR: Vin Castro Interpretating Date/Time 01/20/2017 09:44:12
--- NOTE | 2017-01-20 10:09 | MA ---
cc: ANTHONY LANDON DATE 01/20/2017 PROCEDURE PERFORMED Left heart catheterization, left ventriculography, coronary angiography, right radial artery approach. 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 She had a background history of hyperlipidemia, although this improved with diet and stopping hormone therapy. LDL cholesterol here was 133. She had a left bundle-branch block on presentation during her stay. It was noted the left bundle-branch block is intermittent and actually an EKG was obtained while she was in sinus rhythm showing some T-wave changes inferiorly and in the anteroseptal leads. Because of strong clinical suspicion with the clinical story of unstable angina, a cardiac catheterization was advised. Troponins have been negative. DESCRIPTION OF PROCEDURE The patient was brought to the cardiac lab aid in a fasting state. She received additional IV Versed for sedation using 1% lidocaine for local anesthesia. A treadmill slender sheath was inserted in the right radial artery without difficulty using ultrasound guidance. Coronary angiography was then completed using a left 3.5 Miguel for the left coronary artery. The right coronary artery was difficult to engage selectively, but was successfully accomplished with the right Miguel. A pigtail catheter was used to measure left ventricular pressure followed by a pullback. The sheath was removed from the right wrist with a Terumo band placed. Through were no complications. FINDINGS 1. Hemodynamics. Left ventricular pressure was 117/5 with an end-diastolic pressure of 10, aortic pressure is 122/76 with a mean of 97. There is no gradient during pullback from left ventricle to the aorta. 2. Left ventriculography. Left ventriculography shows normal left ventricular function. Estimated ejection fraction of 60%. There is no mitral regurgitation. There are no coronary calcifications. 3. Coronary angiography. Coronary circulation is right-dominant. The left main coronary artery is large and normal-appearing. 4. The left anterior descending artery has one significant diagonal branch and reaches the LV apex and appears normal. 5. The circumflex artery gives off a large obtuse marginal branch and a large posterolateral branch and appears normal. 6. The right coronary artery is a large vessel. Posterolateral branch given off is extremely small. The right coronary artery appears normal. CONCLUSION 1. Normal hemodynamics. 2. Normal left ventricular function. 3. Normal coronary arteries. RECOMMENDATIONS It is difficult to explain the patient's exertional chest discomfort, cannot exclude the possibility of coronary spasm. I am going to start her on diltiazem 180 mg once a day and nitroglycerin sublingual p.r.n. I am going to hold off putting her on Brilinta in view of the coronaries being normal. She will be discharged home later today. MD LORA Yoder/DENISHA /8:51 AM /9:56 AM
[2017-01-20] MEDS ORDERED: NITR1SUB3 SL (10:49)
[2017-01-20] MEDS ORDERED: DILT-60 PO (10:49)
[2017-01-20 11:37] LABS: APTT (PATIENT) 28.6 SEC (24.3-30.1)
--- NOTE | 2017-01-20 11:53 | EKG ---
Date Performed: 01/19/2017 Time Performed: 12:55:02 PTAGE: 46 years EKG: SINUS TACHYCARDIA MARKED LEFT AXIS DEVIATION LEFT BUNDLE BRANCH BLOCK ABNORMAL ECG PREVIOUS TRACING : 04/05/2006 20.39 Compared to the previous tracing, left bundle branch block is new DOCTOR: Vin Castro Interpretating Date/Time 01/20/2017 11:52:17
--- NOTE | 2017-01-20 12:22 | HHI.PR ---
Objective Objective Results - Vital Signs Date Time Temp Pulse Resp B/P Pulse Ox O2 Delivery O2 Flow Rate FiO2 01/20/17 11:45 98.9 85 16 127/83 97 01/20/17 11:45 70 01/20/17 10:00 86 01/20/17 09:30 98 01/20/17 09:28 70 01/20/17 09:28 98.9 79 16 137/82 99 01/20/17 07:00 89 01/20/17 06:13 82 01/20/17 06:08 132 01/20/17 06:00 82 01/20/17 05:00 82 01/20/17 04:00 78 01/20/17 03:00 85 01/20/17 03:00 98.8 86 18 113/66 95 01/20/17 02:00 80 01/20/17 01:00 82 01/20/17 00:00 83 01/19/17 23:27 95 21 01/19/17 23:00 77 01/19/17 23:00 98.4 78 18 106/65 96 01/19/17 22:00 85 01/19/17 21:00 82 01/19/17 20:10 98.8 88 18 140/86 95 01/19/17 20:00 94 01/19/17 19:00 100 01/19/17 17:38 98 21 01/19/17 13:51 92 18 142/82 Room Air 01/19/17 13:15 106 18 98 Room Air 01/19/17 13:13 106 18 01/19/17 13:13 98 Room Air 01/19/17 12:43 98.6 112 20 167/96 100 Room Air I/O 01/19/17 01/19/17 01/19/17 01/20/17 01/20/17 01/20/17 07:00 15:00 23:00 07:00 15:00 23:00 Intake Total 480 ml Output Total 375 ml Balance 105 ml Intake Oral 480 ml Output Urine Total 375 ml # Voids 2 Result Diagram: 01/19/17 1325 01/19/172058 Other Results Laboratory Tests Test 01/19/17 01/19/17 01/20/17 01/20/17 13:25 20:59 03:20 11:11 White Blood Count 9.4 Red Blood Count 4.92 Hemoglobin 14.1 Hematocrit 42.0 Mean Corpuscular Volume 85.4 Mean Corpuscular Hemoglobin 28.6 Mean Corpuscular Hemoglobin 33.5 Concent Red Cell Distribution Width 12.8 Platelet Count 380 Mean Platelet Volume 8.9 Neutrophils (%) (Auto) 53.1 Lymphocytes (%) (Auto) 36.8 Monocytes (%) (Auto) 8.1 Eosinophils (%) (Auto) 1.2 Basophils (%) (Auto) 0.8 Neutrophils # (Auto) 5.0 Lymphocytes # (Auto) 3.5 Monocytes # (Auto) 0.8 Eosinophils # (Auto) 0.1 Basophils # (Auto) 0.1 CBC Comment DIFF FINAL Differential Comment Prothrombin Time 10.3 Prothromb Time International 0.9 Ratio Activated Partial 28.4 41.4 28.6 Thromboplast Time D-Dimer Quantitative (PE/DVT) 0.21 Sodium Level 139 140 Potassium Level 3.6 3.7 Chloride Level 107 108 Carbon Dioxide Level 22.4 24.4 Anion Gap 10 8 Blood Urea Nitrogen 11 9 Creatinine 0.78 0.78 Estimat Glomerular Filtration 79 79 Rate Random Glucose 90 88 Calcium Level 8.9 8.9 Magnesium Level 2.3 Total Creatine Kinase 48 Troponin I LESS THAN 0.02 LESS THAN 0.02 Total Bilirubin 0.5 Aspartate Amino Transf 14 (AST/SGOT) Alanine Aminotransferase 21 (ALT/SGPT) Alkaline Phosphatase 64 Total Protein 6.9 Albumin 3.5 Triglycerides Level 83 Cholesterol Level 198 LDL Cholesterol 133 HDL Cholesterol 48.7 Cholesterol/HDL Ratio 4.06 Thyroid Stimulating Hormone 0.638 3rd Gen Physical Exam Physical Exam PHYSICAL EXAMINATION GENERAL: This is a well-developed, well-nourished female who appears to be in no acute distress. She is alert and awake, []. HEAD: Normocephalic without any lesion or mass noted. Facial features appear symmetric. EYES: Perrla, Normal eye movement, [] Icterus. [] Conj congestion. OROPHARYNGEAL: Oropharynx without erythema or edema. MOUTH/THROAT: Tongue midline []. Buccal mucosa is moist []. NECK: Supple. No nuchal rigidity or lymphadenopathy. Trachea midline without deviation. Thyroid not palpable, no bruits appreciated. CARDIAC: Regular rhythm, regular rate, S1 and S2 are heard. Murmur []; no gallops or rubs. LUNGS: Clear to auscultation bilaterally. [] wheeze, [] rhonchi or [] rale. No use of accessory muscles on inspiration or expiration. ABDOMEN: Soft, nontender, no organomegaly or masses. Bowel sounds are heard in all four quadrants. No rebound. No guarding. EXTREMITIES: [] edema. Pulses equal bilateral. [] cyanosis. NEUROLOGICAL: Patient mood and affect appropriate. Cranial nerves II through XII grossly intact. Muscle strength 5/5 in the upper and lower extremities bilaterally. Deep tendon reflexes are 2+ in the upper and lower extremities bilaterally. SKIN:Warm and moist PSYCH: Mood and affect appropriate A/P Assessment and Plan PHYSICAL EXAMINATION GENERAL: Mildly obese white female, looks to be her stated age, well-nourished, well-developed. She is alert, oriented, cooperative and a good historian. HEAD, EYES, EARS, NOSE AND THROAT/NECK: Atraumatic, normocephalic. PERRLA at 2. Mucous membranes are pink and moist. Neck is supple. She has no scleral icterus. SKIN: Her skin is pink, warm and dry. CARDIOVASCULAR: S1, S2. Regular, rate and rhythm. Heart sounds are distant but no murmurs, rubs or gallops audible. She has no lower extremity edema and her pulses are 2+/4+ and intact. PULMONARY: Essentially clear anteriorly and posteriorly with no wheezes, rales or rhonchi. ABDOMEN: Abdomen is round, soft, nontender, nondistended. Active bowel sounds in all quadrants. MUSCULOSKELETAL: She moves all extremities with purpose. She has equal hand enrolled nurse. NEUROLOGIC: Her tongue is midline. Her speech is clear. PSYCHOLOGICAL: Appropriate mood and affect. Insight and judgment is normal. ASSESSMENT AND PLAN 1. Chest pain. Rule out OK. Rule out cardiovascular disease. 2. Tachycardia with EKG showing left bundle branch block. 3. Exertional dyspnea related to #1. 4. History of tachycardia as a child. 5. Hyperlipidemia. PLAN observation. Appreciate CaRDIOLOGY INPUT s/p Cardiac cath with normal coronories symptoms likely sec to spasms, Diltiazem and SL Nitro prescribed NO ASA sec to Allergy ok to d/c home per Cardiology Lipid profile noted with LDL 131, patient want to diet and exercise first ok to d/c home plan of care discussed with patient, family at bed side, nursing staff and Apurva Kim MD Jan 20, 2017 12:22
--- NOTE | 2017-01-20 17:57 | HHI.DS ---
Discharge Summary Admission Date January 19, 2017 at 16:28 Discharge Date: Jan 20, 2017 Admitting Diagnosis chest pain, new LBBB Procedures cardiac cath CBC/BMP: 01/19/17 1325 01/19/179 Significant Findings Laboratory Tests Test 01/19/17 01/19/17 01/20/17 13:25 20:59 03:20 Monocytes (%) (Auto) 8.1 % (0.0-8.0) Estimat Glomerular Filtration 79 ML/MIN (>89) 79 ML/MIN (>89) Rate Troponin I LESS THAN 0.02 LESS THAN 0.02 NG/ML NG/ML (0.02-0.05) (0.02-0.05) Chloride Level 108 MEQ/L (98-107) Aspartate Amino Transf 14 U/L (15-37) (AST/SGOT) LDL Cholesterol 133 MG/DL (0-99) Activated Partial 41.4 SEC Thromboplast Time (24.3-30.1) Imaging Last Impressions Chest X-Ray 01/19/17 1249 Signed Impressions: Service Date/Time: Thursday, January 19, 2017 13:07 - CONCLUSION: No acute disease. Celio Cervantes MD FACR Pt Condition on Discharge: Stable Discharge Disposition: Discharge Home Discharge Instructions DIET: Follow Instructions for: Heart Healthy Diet Activities you can perform: See Additionl Instruction Activities to Avoid: Strenuous Activity Follow up Referrals: Cardiology with Jeffrey Parker MD Continued Medications: Diltiazem CD 24 HR (Diltiazem CD 24 HR) 120 Mg Caper 120 MG PO DAILY #30 Ref 0 CAP Nitroglycerin SL (Nitroglycerin SL) 0.4 Mg Subl 0.4 MG SL DIRECTED ONE TABLET UNDER THE TONGUE NEEDED FOR CHEST PAIN, MAY REPEAT EVERY FIVE MINUTES FOR A TOTAL OF 3 DOSES OR CALL 911 IF NO RELIEF PRN CHEST PAIN #100 Ref 0 TAB.SL Ele Miranda Jan 20, 2017 17:56
[2017-01-21] MEDS ORDERED: DILTIAZEM-CD 120 MG CAP ER PO SCH (09:00)
[2017-01-21] MEDS ORDERED: PNEUMOCOCCAL POLYVALENT INJ 25 MCG/0.5 ML SYR IM ONE (10:00)
== END 2017-01-20 12:40 | disposition home or self-care (01) ==
LOC: NEPC 12:41 → NEDA 16:28 → HCIN 18:48
PROVIDERS: ADMIT Internal Medicine; ATTEND Internal Medicine
DX: I20.0 Unstable angina (principal); I44.7 Left bundle-branch block, unspecified; R00.0 Tachycardia, unspecified; E78.5 Hyperlipidemia, unspecified; E66.9 Obesity, unspecified; F41.9 Anxiety disorder, unspecified; Z88.0 Allergy status to penicillin; Z88.2 Allergy status to sulfonamides; Z88.6 Allergy status to analgesic agent; Z88.1 Allergy status to other antibiotic agents; Z91.040 Latex allergy status; Z82.49 Family history of ischemic heart disease and other diseases of the circulatory system; Z68.31 Body mass index [BMI] 31.0-31.9, adult
CPT/HCPCS: 71010; 80053; 80061; 82550; 83735; 84443; 84484; 85025; 85379; 85610; 85730; 93005; 93306; 93458; 99285; C1769; C1893; G0378; J1644; J2250; J3010; J7030; Q0163; 80048